=== PATIENT | male | born 1990 | race Two or more races ===

== ENCOUNTER 2016-05-11 17:36 | Emergency (ER) | payer OTHER ==
[~2016-05-11] VITALS: Ht 172.7 cm; Wt 88.0 kg
[2016-05-11] MEDS ORDERED: PERCOCET 5/31 TABLET PO (22:22)
[2016-05-11 22:51] VITALS: BP 126/88
== END 2016-05-11 22:52 | disposition home or self-care (01) ==
LOC: EME 17:36 → EDBD 17:36 → EME 22:00 → EDOF 22:00
DX: S52.502A Unspecified fracture of the lower end of left radius, initial encounter for closed fracture (principal); S52.612A Displaced fracture of left ulna styloid process, initial encounter for closed fracture; S32.028A Other fracture of second lumbar vertebra, initial encounter for closed fracture; Y92.39 Other specified sports and athletic area as the place of occurrence of the external cause; Y93.23 Activity, snow (alpine) (downhill) skiing, snowboarding, sledding, tobogganing and snow tubing
CPT/HCPCS: 72100; 73100; 73110; 80048; 85025; 99281; 99285; G0378; J1885; J3010